=== PATIENT | female | born 1990 | race Caucasian/White ===

== ENCOUNTER 2017-01-18 17:58 | Emergency (ER) | payer BC, MEDICAID ==
[2017-01-18 18:09] VITALS: BP 116/56
--- NOTE | 2017-01-18 18:30 | UC ---
Abdominal Pain Female HPI - HPI Summary HPI Summary: for past 2 weeks, pain right upper quadrant that radiates to back. pain moves around, was in the bladder area and also in the RUQ and now the right side upper and lower that is mild. no vomiting / diarrhea. Had a 2 months ago. Diarrhea today. Complaints of headaches intermittently but not waking her up at night or worse of her life. Has had no fever or SOB. Pain sometimes worse with a meal but patient not sure. no urinary concerns. to get her menstrual cycle next week. sometimes pain worse with bending over and picking up her child around the area the scar is at. [ End ] - History of Current Complaint Chief Complaint: UCAbdominalPain Stated Complaint: RIGHT SIDE/BACK PAIN Time Seen by Provider: 01/18/17 18:12 Hx Obtained From: Patient Hx Last Menstrual Period: 12/28/16 ?: No Onset/Duration: Gradual Onset Severity Initially: Mild Severity Currently: Moderate Allergies/Adverse Reactions: Allergies Allergy/AdvReac Type Severity Reaction Status Date / Time No Known Allergies Allergy Verified 01/18/17 18:09 Home Medications: Home Medications Sertraline* [Zoloft*] 50 mg PO DAILY 01/18/17 [History Confirmed 01/18/17] PMH/Surg Hx/FS Hx/Imm Hx Previously Healthy: Yes - Surgical History Surgical History: Yes Surgery Procedure, Year, and Place: EGD- [place], ABOUT 5 OR 6 SIX YEARS AGO. D&C X 4- 10 YEARS AGO, AND ONE TIME 6 YEARS AGO- [place]. 2016 - Family History Known Family History: Positive: None - Social History Occupation: Employed Full-time Lives: With Family Alcohol Use: Rare Alcohol Amount: few days a week Substance Use Type: None Smoking Status (MU): Former Smoker Type: Cigarettes Amount Used/How Often: 1 PACK A DAY Length of Time of Smoking/Using Tobacco: 14 YEARS Have You Smoked in the Last Year: Yes When Did the Patient Quit Smoking/Using Tobacco: 07/2015 Household Exposure Type: Cigarettes Review of Systems Constitutional: Negative Skin: Negative Eyes: Negative ENT: Negative Respiratory: Negative Cardiovascular: Negative Gastrointestinal: Abdominal Pain Genitourinary: Negative Motor: Negative Neurovascular: Negative Musculoskeletal: Negative Neurological: Negative Psychological: Negative All Other Systems Reviewed And Are Negative: Yes Physical Exam Triage Information Reviewed: Yes Appearance: Well-Appearing, No Pain Distress, Well-Nourished Vital Signs: Initial Vital Signs Temp 98.1 F 01/18/17 18:02 Pulse 92 01/18/17 18:02 Resp 18 01/18/17 18:02 BP 116/56 01/18/17 18:02 Pulse Ox 97 01/18/17 18:02 Vital Signs Reviewed: Yes Eye Exam: Normal ENT Exam: Normal Dental Exam: Normal Neck exam: Normal Neck: Positive: 1 Respiratory Exam: Normal Cardiovascular Exam: Normal Abdominal Exam: Normal Abdomen Description: Positive: No Organomegaly, Soft, Other: - mild right lower quadrant and suprapubic tenderness that is mild.. Negative: Bruit, CVA Tenderness (R), CVA Tenderness (L), Distended, Guarding, Hernia @, Hepatomegaly , McBurney's Point Tenderness, Peritoneal Signs, Pulsatile Mass, Splenomegaly Musculoskeletal Exam: Normal Neurological Exam: Normal Psychological Exam: Normal Skin Exam: Normal Abd Pain Female Course/Dx - Course Course Of Treatment: No sono available at this time. young woman with mild RLQ pain / pelvic pain and history of ovarian cysts when younger and likely has at this time but CT not needed. could be adhesion discomfort as well. no acute abdomen. with hematuria aware to f/u with PCP or [facility] and she may need sono. aware if sx worsen to RTO or to go to ED she is agreeable. declined work note. - Differential Dx/Diagnosis Differential Diagnosis: Appendicitis, Peptic Ulcer Disease, Other - ovarian cysts Provider Diagnoses: abdominal / pelvic pain / ?ovarian cyst Discharge - Discharge Plan Condition: Good Disposition: HOME Patient Education Materials: Pelvic Pain in Women (ED) Referrals: No Primary Care Phys,NOPCP [Medical Doctor] - 3 Days (follow up with PCP or [facility] next week for pelvic / abdominal pain follow up and to recheck urine. )
== END 2017-01-18 18:49 | disposition home or self-care (01) ==
LOC: UCCORT 17:58
DX: R10.11 Right upper quadrant pain (principal); R10.2 Pelvic and perineal pain; R19.7 Diarrhea, unspecified; R51 Headache; Z87.891 Personal history of nicotine dependence
CPT/HCPCS: 81003; 99211; G0463

== ENCOUNTER 2018-12-07 17:49 | Emergency (ER) | payer OTHER ==
[2018-12-07 18:29] VITALS: BP 116/73
--- NOTE | 2018-12-07 18:53 | UC ---
Lower Extremity/Ankle HPI - HPI Summary HPI Summary: 28 y/o female presents to the urgent care c/o RLE pain, bruising, swelling onset 4 days ago s/p pt was hit by softball; now leg feels tight, throbbing, burning - History of Current Complaint Chief Complaint: UCLowerExtremity Stated Complaint: RT LEG INJURY Time Seen by Provider: 12/07/18 18:39 Hx Obtained From: Patient Hx Last Menstrual Period: 11/27/18 ?: No Onset/Duration: Sudden Onset, Lasting Days - 5 days, Still Present Severity Initially: Moderate Severity Currently: Moderate Pain Intensity: 4 Pain Scale Used: 0-10 Numeric Aggravating Factor(s): Standing, Ambulation Alleviating Factor(s): Rest, Elevation, OTC Meds Able to Bear Weight: Yes - Risk Factors Gout Risk Factors: Negative DVT Risk Factors: Negative Septic Arthritis Risk Factor: Negative - Allergies/Home Medications Allergies/Adverse Reactions: Allergies Allergy/AdvReac Type Severity Reaction Status Date / Time No Known Allergies Allergy Verified 12/07/18 18:30 Home Medications: Home Medications Ibuprofen TAB* [Motrin TAB* 600 MG] 600 mg PO DAILY 12/07/18 [History Confirmed 12/07/18] Iud 1 unit IU DAILY 12/07/18 [History Confirmed 12/07/18] PMH/Surg Hx/FS Hx/Imm Hx Previously Healthy: Yes - Pt denies PMHX - Surgical History Surgical History: Yes Surgery Procedure, Year, and Place: [facility]- [place], ABOUT 5 OR 6 SIX YEARS AGO ; 2016 medical . D&C X 4- 10 YEARS AGO, AND ONE TIME 6 YEARS AGO- [place]. 2016 - Family History Known Family History: Positive: Cardiac Disease, Hypertension, Diabetes - Social History Occupation: Employed Full-time Lives: With Family Alcohol Use: Weekly Alcohol Amount: 2 Substance Use Type: None Smoking Status (MU): Current Some Day Smoker Type: Cigarettes, eCigarettes Amount Used/How Often: 1 PACK A DAY Length of Time of Smoking/Using Tobacco: 14 YEARS Have You Smoked in the Last Year: Yes When Did the Patient Quit Smoking/Using Tobacco: 07/2015 Household Exposure Type: Cigarettes Review of Systems All Other Systems Reviewed And Are Negative: Yes Constitutional: Positive: Negative Skin: Positive: Bruising - distal Rt lower leg Eyes: Positive: Negative ENT: Positive: Negative Respiratory: Positive: Negative Cardiovascular: Positive: Negative Gastrointestinal: Positive: Negative Genitourinary: Positive: Negative Motor: Positive: Negative Neurovascular: Positive: Negative Musculoskeletal: Positive: Other: - RT lower leg pain and swelling s/p injury playing soft ball Neurological: Positive: Negative Psychological: Positive: Negative Is Patient Immunocompromised?: No Physical Exam - Summary Physical Exam Summary: Vital Signs Reviewed: Yes General: well developed, well nourished obese female, sitting in the examining table w/o any apparent distress Eyes: Positive: Conjunctiva Clear - PERRLA, EOMI, ENT: Positive: Normal ENT inspection, Hearing grossly normal, Pharynx normal, TMs normal Neck: Positive: Supple, Nontender, No Lymphadenopathy Respiratory: Positive: Chest non-tender, Lungs clear, Normal breath sounds, No respiratory distress Cardiovascular: Positive: RRR, No Murmur, Pulses Normal, Brisk Capillary Refill Abdomen Description: Positive: Nontender, No Organomegaly, Soft. Negative: CVA Tenderness (R), CVA Tenderness (L) Bowel Sounds: Positive: Present Musculoskeletal: - Ankle: Pt is able to bear weight and ambulate w/ limping. The R ankle is without obvious asymmetry or deformity when compared to the L ankle. Decreased ROM due to pain. Moderate swelling at the lateral malleolus, with tenderness to palpation. No ecchymosis or bruising observed. Tenderness to palpation over the medial malleolus , no swelling observed. Talar tilt test is negative for ligament laxity to valgus or varus stress. Negative anterior drawer. Peroneal nerve is intact with strong eversion and plantar flexion. Positive sensation over the Rt foot and Rt ankle, positive pulses, capillary refill intact Neurological Exam: Normal Psychological Exam: Normal Skin: warm and dry Triage Information Reviewed: Yes Vital Signs: Initial Vital Signs Temp 99.7 F 12/07/18 18: Pulse 77 12/07/18 18:22 Resp 18 12/07/18 18:22 BP 116/73 12/07/18 18:22 Pulse Ox 100 12/07/18 18:22 Lower Extremity Course/Dx - Differential Dx/Diagnosis Differential Diagnosis/HQI/PQRI: Compartment Syndrome, Contusion, Fracture ( Closed), Sprain, Strain, Tendonitis Provider Diagnosis: Injury of right lower leg Discharge - Sign-Out/Discharge Documenting (check all that apply): Patient Departure - D/C home All imaging exams completed and their final reports reviewed: No - Discharge Plan Condition: Stable Disposition: HOME Referrals: Mary Suarez MD [Primary Care Provider] - - Billing Disposition and Condition Condition: STABLE Disposition: Home
[2018-12-07] MEDS ORDERED: Ibuprofen TAB* 400 MG PO ONE (19:15)
--- NOTE | 2018-12-08 13:59 | ED ---
Progress - Progress Note Progress Note: LL extremity xray: NAD. radiology final read Course/Dx - Diagnoses Provider Diagnoses: Injury of right lower leg Discharge - Sign-Out/Discharge Documenting (check all that apply): Patient Departure All imaging exams completed and their final reports reviewed: Yes - Discharge Plan Condition: Stable Disposition: HOME Prescriptions: Ibuprofen TAB* [Motrin TAB* 800 MG] 800 mg PO Q6H PRN #30 tab PRN Reason: Pain Patient Education Materials: Hematoma (ED) Forms: *Work Release Referrals: [facility] [Provider Group] - 3 Days Mary Suarez MD [Primary Care Provider] - 3 Days Additional Instructions: 1-Please take Ibuprofen PO q6-8hrs prn after meals as directed to alleviate pain and swelling. 2-Please apply ice, keep your leg immobilized with the genaro bandage. Avoid weight bearing using the crutches. Elevate your leg as much as possible to decrease swelling. 3- Please f/u with Orthopedic from Sports Medicine in 3 days if not improvement of symptoms for further evaluation and treatment. 4- If symptoms worsen and you develop severe calf pain, numbness or tingling or severe swelling please go immediately to the ER for further management - Billing Disposition and Condition Condition: STABLE Disposition: Home
== END 2018-12-07 20:05 | disposition home or self-care (01) ==
LOC: UCCORT 17:49
DX: S89.91XA Unspecified injury of right lower leg, initial encounter (principal); W21.07XA Struck by softball, initial encounter; Y92.9 Unspecified place or not applicable; F17.210 Nicotine dependence, cigarettes, uncomplicated
CPT/HCPCS: 99213; A9270-GY; G0463

== ENCOUNTER 2019-05-28 07:02 | Emergency (ER) | payer OTHER ==
[2019-05-28 07:12] VITALS: BP 119/62
--- NOTE | 2019-05-28 07:25 | UC ---
Respiratory Complaint HPI - HPI Summary HPI Summary: Ms. Ponce has nasal congestion for couple of days with a cough. This morning she woke up and felt like she couldn't cough anything up and more short of breath. She has a history of having been treated with an inhaler around this time of year but never been told she has asthma. She denies fever or chills. - History of Current Complaint Chief Complaint: UCGeneralIllness Stated Complaint: COUGH Time Seen by Provider: 05/28/19 07:13 Hx Last Menstrual Period: 1 month ago Pain Intensity: 0 - Allergies/Home Medications Allergies/Adverse Reactions: Allergies Allergy/AdvReac Type Severity Reaction Status Date / Time No Known Allergies Allergy Verified 05/28/19 07:12 Home Medications: Home Medications Pseudoephedrine HCL ER TAB* [Sudafed 12 Hour*] 120 mg PO BID PRN 05/28/19 [ History Confirmed 05/28/19] PMH/Surg Hx/FS Hx/Imm Hx Previously Healthy: Yes - Surgical History Surgical History: Yes Surgery Procedure, Year, and Place: D- [place], ABOUT 5 OR 6 SIX YEARS AGO ; 2015 medical . D&C X 4- 10 YEARS AGO, AND ONE TIME 6 YEARS AGO- [place]. 2016 - Family History Known Family History: Positive: None, Cardiac Disease, Hypertension, Diabetes - Social History Alcohol Use: Weekly Alcohol Amount: 2 Substance Use Type: None Smoking Status (MU): Current Some Day Smoker Type: Cigarettes, eCigarettes Amount Used/How Often: currently a few times per week, was 1 PACK A DAY Length of Time of Smoking/Using Tobacco: 14 YEARS Have You Smoked in the Last Year: Yes When Did the Patient Quit Smoking/Using Tobacco: 07/2015 Household Exposure Type: Cigarettes Review of Systems All Other Systems Reviewed And Are Negative: Yes Physical Exam - Summary Physical Exam Summary: She is nontoxic in appearance with stable vital signs. Triage Information Reviewed: Yes Appearance: Well-Appearing, Obese Vital Signs: Initial Vital Signs Temp 98.4 F 05/28/19 07:08 Pulse 71 05/28/19 07:08 Resp 14 05/28/19 07:08 BP 119/62 05/28/19 07:08 Pulse Ox 99 05/28/19 07:08 Vital Signs Reviewed: Yes ENT: Positive: Nasal congestion - He Neck: Positive: No Lymphadenopathy Respiratory: Positive: Lungs clear Cardiovascular Exam: Normal - Is released something so Cardiovascular: Positive: RRR Skin Exam: Normal Respiratory Course/Dx - Course Course Of Treatment: This sounds like a viral URI. I'm really treat her symptomatically with guaifenesin with codeine. Would give her an inhaler because she has a history of having bronchospasm. - Differential Dx/Diagnosis Provider Diagnosis: URI (upper respiratory infection), Bronchospasm Discharge ED - Sign-Out/Discharge Documenting (check all that apply): Patient Departure All imaging exams completed and their final reports reviewed: No Studies - Discharge Plan Condition: Stable Disposition: HOME Patient Education Materials: Upper Respiratory Infection (ED), Bronchospasm (ED ) Referrals: Mary Suarez MD [Primary Care Provider] - - Billing Disposition and Condition Condition: STABLE Disposition: Home
== END 2019-05-28 07:37 | disposition home or self-care (01) ==
LOC: UCEAST 07:02
DX: J98.01 Acute bronchospasm (principal); J06.9 Acute upper respiratory infection, unspecified; F17.210 Nicotine dependence, cigarettes, uncomplicated
CPT/HCPCS: 99212; G0463